=== PATIENT | male | born 1950 | race Caucasian/White ===

== ENCOUNTER → 2022-07-03 | Outpatient (CLI) | payer MEDICARE ==
--- NOTE | 2022-07-03 09:32 | CA ---
Transthoracic Echo Report Name: Fox Garcia Age: 71 Gender: M : 1950 Exam Date: 07/03/2022 08:39 Exam Location: [facility] Ht (in): 71 Wt (lb): 165 Ordering Physician: Joss Borjas MD Attending/Referring Phys: Nutrition Aide Shama Hyman RDCS Procedure CPT: Indications: R00.1 bradycardia Cardiac Hx: Technical Quality: Fair Contrast 1: Total Dose (mL): Contrast 2: Total Dose (mL): MEASUREMENTS (Male / Female) Normal Values 2D ECHO LV Diastolic Diameter PLAX 4.8 cm 4.2 - 5.9 / 3.9 - 5.3 cm LV Systolic Diameter PLAX 3.6 cm IVS Diastolic Thickness 1.5 cm 0.6 - 1.0 / 0.6 - 0.9 cm LVPW Diastolic Thickness 1.1 cm 0.6 - 1.0 / 0.6 - 0.9 cm LV Relative Wall Thickness 0.5 RV Internal Dim ED PLAX 3.1 cm LA Volume 64.4 cm??? 18 - 58 / 22 - 52 cm??? M-MODE Aortic Root Diameter MM 3.0 cm LA Systolic Diameter MM 4.6 cm LA Ao Ratio MM 1.5 AV Cusp Separation MM 2.1 cm DOPPLER AV Peak Velocity 102.0 cm/s AV Peak Gradient 4.2 mmHg AV Mean Velocity 73.3 cm/s AV Mean Gradient 2.4 mmHg AV Velocity Time Integral 22.0 cm AI Peak Velocity 404.9 cm/s AI Peak Gradient 65.6 mmHg AI Pressure Half Time 991.8 ms LVOT Peak Velocity 85.3 cm/s LVOT Peak Gradient 2.9 mmHg LVOT Velocity Time Integral 17.4 cm MV Area PHT 1.1 cm??? Mitral E Point Velocity 31.9 cm/s Mitral A Point Velocity 55.7 cm/s Mitral E to A Ratio 0.6 MV Deceleration Time 684.6 ms MV E' Velocity 4.8 cm/s Mitral E to MV E' Ratio 6.6 TR Peak Velocity 217.9 cm/s TR Peak Gradient 19.0 mmHg Right Ventricular Systolic Press 22.7 mmHg FINDINGS Left Ventricle Moderately increased left ventricular wall thickness. No obvious regional wall motion abnormalities. Left ventricular ejection fraction is estimated at 50-55 %. Right Ventricle Normal right ventricular size and function. Right ventricular systolic pressure within normal limits. Right Atrium Normal right atrial size. Mobile Interatrial septum. Left Atrium Mildly increased left atrial volume. Mildly increased left atrial area. Mitral Valve Mitral valve thickened. Structurally normal mitral valve. Mild mitral regurgitation. Aortic Valve Trileaflet aortic valve. No aortic valve stenosis. mild aortic regurgitation . Aortic valve sclerosis. Tricuspid Valve Structurally normal tricuspid valve. Mild tricuspid regurgitation. Pulmonic Valve Structurally normal pulmonic valve. Trace pulmonic regurgitation. Pericardium No pericardial effusion. Aorta Normal size aortic root and proximal ascending aorta. CONCLUSIONS 1. Normal left ventricular size was borderline normal left ventricle systolic function 2. Mild mitral and tricuspid regurgitation 3. Mild aortic regurgitation 4. No pericardial effusion Previewed by: Dr. Renita Waller MD (Electronically Signed) Final Date: 03 July 2022 09:31
--- NOTE | 2022-07-03 12:31 | CA ---
Exercise Stress Test Report Name: Fox Garcia Exam Date: 07/03/2022 09:40 Exam Location: [facility] Ht (in): 71 Wt (lb): 165 BSA: 1.94 Ordering Phys: Joss Borjas MD Referring Phys: VERONICA, Technologist: Bam Haywood Age: 71 Gender: M : 1950 Procedure CPT: Indications: R00.1 bradycardia ICD-10 Codes: Patient History: Medications: NONE Meds past 24 hrs: Pretest Chest Pain: STRESS TEST Myke Protocol Exercise Duration (min:sec): 04:[address] Depressions (mm): 0 Angina Score: 0 Staples Score: 4.15 Resting HR (bpm): 44 Peak HR (bpm): 139 Resting BP (mmHg): 143 / 79 Peak BP (mmHg): 200 / 92 MPHR: 148 Target HR: 126 % MPHR: 94 METS: 5.8 Total Dose: Peak Dose: Atropine: Double Product: 17712 BP Response: Stress Termination: Reached target heart rate Stress Symptoms: NO SYMPTOMS Stress Summary: The patient's target heart rate was achieved, The hemodynamic response to exercise was normal ECG ANALYSIS Resting ECG: Sinus rhythm. Normal conduction. No arrhythmias. Normal repolarization. Stress ECG: No ECG evidence of ischemia with exercise. Sinus rhythm. Normal conduction. Atrial premature contraction. Ventricular premature contraction. CONCLUSIONS 1. Decrease exercise tolerance 2. Occasional PVCs and PACs 3. Normal electrocardiographic response to exercise with no evidence of exercise induced ischemia Dr. Renita Waller MD (Electronically Signed) Final Date: 03 July 2022 12:30
--- NOTE | 2022-07-03 14:42 | NM ---
EXAMINATION TYPE: NM stress cardiolite complete DATE OF EXAM: 07/03/2022 COMPARISON: NONE HISTORY: 71-year-old male R00.1, bradycardia. Chest pressure. TECHNIQUE: After the intravenous administration of 9.6 mCi Tc 99m Sestamibi - Rest images obtained 4 5 minutes post injection. The patient exercised using a CORNELIA protocol and 1 minute prior to peak e xercise was injected with 25.0 mCi Tc 99m Sestamibi - Stress images obtained 30 minutes post injectio n. FINDINGS: Targeted heart rate (126 BPM) was achieved during performance of the study (139 BPM achieved). Total exercise time 4 minutes 9 seconds. Review of stress and rest SPECT images demonstrates fixed perfusion defect along the mid to basal inf eroseptal wall. Some attenuation artifact along the inferior apical wall on rest. No discrete reversi bility is seen. Gated analysis shows mild global hypokinesis with an estimated left ventricular ejec tion fraction of 46 %. TID calculated at 0.97, within normal limits. IMPRESSION: 1. Fixed perfusion defect mid to basal inferoseptal wall could represent area of old infarct. Estimat ed LVEF is mildly diminished at 46%. Further evaluation as clinically indicated. 2. No discrete reversibility identified.
== END | disposition home or self-care (01) ==
LOC: RADNMMAIN 07:50
PROVIDERS: ATTEND Family Medicine
DX: R00.1 Bradycardia, unspecified (principal)
CPT/HCPCS: 93017; 93306; 78452; A9500

== ENCOUNTER → 2023-05-25 | Outpatient (CLI) | payer MEDICARE ==
--- NOTE | 2023-05-25 12:05 | US ---
EXAMINATION TYPE: US scrotum with doppler. Grayscale and color Doppler Duplex imaging performed of tim bustamante scrotum. DATE OF EXAM: 05/25/2023 COMPARISON: NONE CLINICAL INDICATION: Male, 72 years old with history of N50.811 TESTICULAR PAIN; EXAM MEASUREMENTS: TESTICLES: Right Testicle: 4.0 x 3.1 x 3.5 cm Left Testicle: 4.8 x 2.5 x 3.3 cm EPIDIDYMIS HEAD: Right Epididymis: not seen Left Epididymis: 1.6 x 0.9 cm Doppler performed to assess for testicular vascularity; good bilateral color flow and waveforms are s een. There is no evidence of testicular torsion. Presence of hydroceles: fluid collection around right testicle measures 5.4 x 2.5 x 4.3. Fluid colle ction around left testicle measures 5.1 x 2.1 x 2.5 cm. Presence of varicoceles: none appreciated. Heterogeneous area with increased flow noted posterior right testicle believed to be epididymis tail, probable epididymitis. There also appears to be increased flow in right testicle as compared to left , probable orchitis. IMPRESSION: 1. Epididymoorchitis suggested on the right. Hydroceles as noted.
== END | disposition home or self-care (01) ==
LOC: RADUSWWP 10:39
PROVIDERS: ATTEND Family Medicine
DX: N50.811 Right testicular pain (principal); N43.3 Hydrocele, unspecified
CPT/HCPCS: 76870; 93975